=== PATIENT | male | born 1955 | race Hispanic/Latino ===

== ENCOUNTER 2020-12-01 13:03 | Inpatient (IN) | payer OTHER ==
[2020-12-01] MEDS ORDERED: Acetaminophen 325 MG TAB PO PRN (14:07)
[2020-12-01] MEDS ORDERED: Senokot S 8.6-50 MG TAB PO PRN (14:07)
[2020-12-01] MEDS ORDERED: Ondansetron PF 4 MG/2 ML Vial IVP PRN (14:07)
[2020-12-01] MEDS ORDERED: Guaifenesin DM 100-10/5 ML UDCUP PO PRN (14:07)
[2020-12-01 14:27] VITALS: BMI 27.4
[2020-12-01] MEDS: Azithromycin 500 MG in Sodium Chloride 0.9% 250 ML 250 ML IVPB SCH (14:33)
[2020-12-01] MEDS: cefTRIAXone\\ROCEPHIN 1 GM in Sodium Chloride 0.9% 100 ML IVPB SCH (14:33)
[2020-12-01] MEDS: Benzonatate 100 MG CAP PO SCH ×2 (16:29→19:55)
[2020-12-01] MEDS: Famotidine/PF 20 mg/2ml Vial SLOW IVP SCH (19:54)
[2020-12-01] MEDS ORDERED: Famotidine 20 MG TAB PO SCH (21:00)
[2020-12-02 03:34] LABS: Mean Corpuscular HGB CONC 31.8 g/dL (32.0-36.0); Mean Corpuscular Hemoglobin 25.9 pg (27.0-33.0); Mean Corpuscular Volume 81.5 fl (81.2-95.1); Mean Platelet Volume 9.7 fl (7.4-10.4); Platelet Count 145 10x3/uL (150-450); RBC Distribution Width 16.6 % (11.5-14.5); Red Blood Cell (RBC) Count 5.02 10x6/uL (4.32-5.72); White Blood Cell (WBC) Count 5.7 10x3/uL (3.5-10.5)
[2020-12-02 03:48] LABS: Magnesium 2.2 mg/dL (1.6-2.6)
[2020-12-02 03:51] LABS: ALT (SGPT) 21 U/L (8-55); AST (SGOT) 27 U/L (5-34); Albumin 3.2 g/dL (3.4-4.8); Alkaline Phosphatase 73 U/L (40-110); Anion Gap 14 mmol/L (10-20); BUN (Urea Nitrogen) 23 mg/dL (8.4-25.7); Bilirubin, Total 1.3 mg/dL (0.2-1.2); Calc. Creatinine Clearance 109 mL/min (70-130); Calcium 8.5 mg/dL (7.8-10.44); Carbon Dioxide 24 mmol/L (23-31); Chloride 107 mmol/L (98-107); Globulin 1.7 g/dL (2.4-3.5); Glucose 99 mg/dL (80-115); Potassium 4.4 mmol/L (3.5-5.1); Protein, Total 4.9 g/dL (5.8-8.1); Sodium 141 mmol/L (136-145)
[2020-12-02 04:23] LABS: Band 27 % (5-11); Lymphocytes 5 % (21-51); Monocytes 3 % (0-10); Myelocyte 2 % (0-0); Reactive Lymphocytes 2 % (0-10)
[2020-12-02 04:27] LABS: Anisocytosis SLIGHT = 6-15 cells (100X) (0-5/hpf); Metamyelocyte 4 % (0-0); Microcytosis SLIGHT = 6-15 cells (100X) (0-5/hpf); Neutrophil 57 % (42-75); Ovalocytes SLIGHT = 2-5 cells (100X) (0-1/hpf)
[2020-12-02 04:28] LABS: Platelet Morphology Comment Appears Adequate; Toxic Granulation SLIGHT
[2020-12-02 04:29] LABS: MDiff Complete? YES; Small Platelets MODERATE
[2020-12-02] MEDS: Aspirin 81 mg Enteric Coated Tablet PO SCH (08:57)
[2020-12-02] MEDS: Benzonatate 100 MG CAP PO SCH ×3 (08:57→20:34)
[2020-12-02] MEDS: Famotidine/PF 20 mg/2ml Vial SLOW IVP SCH ×2 (08:57→20:34)
[2020-12-02] MEDS: Enoxaparin Sodium 40 MG/0.4 ML SYRINGE SC SCH (08:57)
[2020-12-02] MEDS: Dexamethasone 4 MG TAB PO SCH (08:58)
[2020-12-02] MEDS: Azithromycin 500 MG in Sodium Chloride 0.9% 250 ML 250 ML IVPB SCH (15:26)
[2020-12-02] MEDS: cefTRIAXone\\ROCEPHIN 1 GM in Sodium Chloride 0.9% 100 ML IVPB SCH (15:27)
[2020-12-02] MEDS ORDERED: Piperacillin/Tazobactam 3.375 GM in Sodium Chloride 0.9% 100 ML IVPB SCH (18:45)
[2020-12-03] MEDS: Piperacillin/Tazobactam 3.375 GM in Sodium Chloride 0.9% 100 ML IVPB SCH ×3 (00:45→15:09)
[2020-12-03] MEDS: Benzonatate 100 MG CAP PO SCH ×3 (08:10→20:16)
[2020-12-03] MEDS: Aspirin 81 mg Enteric Coated Tablet PO SCH (08:10)
[2020-12-03] MEDS: Enoxaparin Sodium 40 MG/0.4 ML SYRINGE SC SCH (08:10)
[2020-12-03] MEDS: Dexamethasone 4 MG TAB PO SCH (08:10)
[2020-12-03] MEDS: Famotidine/PF 20 mg/2ml Vial SLOW IVP SCH (08:10)
[2020-12-03] MEDS: Pantoprazole 40 MG VIAL IVP SCH (20:17)
[2020-12-04] MEDS: Piperacillin/Tazobactam 3.375 GM in Sodium Chloride 0.9% 100 ML IVPB SCH ×2 (00:03→06:22)
[2020-12-04] MEDS: Pantoprazole 40 MG VIAL IVP SCH ×2 (07:51→21:16)
[2020-12-04 07:56] LABS: ALT (SGPT) 12 U/L (8-55); AST (SGOT) 23 U/L (5-34); Albumin 3.3 g/dL (3.4-4.8); Alkaline Phosphatase 68 U/L (40-110); Anion Gap 13 mmol/L (10-20); BUN (Urea Nitrogen) 24 mg/dL (8.4-25.7); Bilirubin, Total 1.7 mg/dL (0.2-1.2); Calc. Creatinine Clearance 109 mL/min (70-130); Calcium 8.7 mg/dL (7.8-10.44); Carbon Dioxide 26 mmol/L (23-31); Chloride 106 mmol/L (98-107); Globulin 2.2 g/dL (2.4-3.5); Glucose 87 mg/dL (80-115); Potassium 4.1 mmol/L (3.5-5.1); Protein, Total 5.5 g/dL (5.8-8.1); Sodium 141 mmol/L (136-145)
[2020-12-04] MEDS: Enoxaparin Sodium 40 MG/0.4 ML SYRINGE SC SCH (09:10)
[2020-12-04] MEDS: Benzonatate 100 MG CAP PO SCH ×3 (09:10→21:16)
[2020-12-04] MEDS: Aspirin 81 mg Enteric Coated Tablet PO SCH (09:11)
[2020-12-04] MEDS: Dexamethasone 4 MG TAB PO SCH (09:11)
[2020-12-04] MEDS ORDERED: Vancomycin 1.5 GRAM/300 ML BAG 1.5 GM in Premix Bag 1 BAG IVPB SCH (14:30)
[2020-12-04] MEDS: Cefepime 2 GM in Sodium Chloride 0.9% 100 ML IVPB SCH (14:42)
[2020-12-04] MEDS: guaiFENesin/Codeine Phosphate 100 mg/10 mg 5 ml UD Cup PO PRN ×2 (14:44→21:55)
[2020-12-04 18:23] LABS: Legionella Urinary Ag Negative (Negative); Strep pneumo Urine Ag NEGATIVE (NEGATIVE)
[2020-12-04] MEDS ORDERED: VANCOMYCIN 1.25 GM/250 ML BAG 1.25 GM in Premix Bag 1 BAG IVPB SCH (21:00)
[2020-12-04] MEDS: Dexamethasone 20 MG/5 ML VIAL SLOW IVP SCH (21:16)
[2020-12-05] MEDS: VANCOMYCIN 1.25 GM/250 ML BAG 1.25 GM in Premix Bag 1 BAG IVPB SCH ×2 (02:53→14:05)
[2020-12-05] MEDS: Cefepime 2 GM in Sodium Chloride 0.9% 100 ML IVPB SCH ×2 (02:54→14:05)
[2020-12-05 03:29] LABS: Hemoglobin 12.9 g/dL (13.5-17.5); Mean Corpuscular HGB CONC 32.1 g/dL (32.0-36.0); Mean Corpuscular Hemoglobin 25.8 pg (27.0-33.0); Mean Corpuscular Volume 80.4 fl (81.2-95.1); Mean Platelet Volume 12.2 fl (7.4-10.4); Platelet Count 156 10x3/uL (150-450); RBC Distribution Width 16.6 % (11.5-14.5); White Blood Cell (WBC) Count 4.5 10x3/uL (3.5-10.5)
[2020-12-05 03:42] LABS: Anion Gap 14 mmol/L (10-20); BUN (Urea Nitrogen) 24 mg/dL (8.4-25.7); Calc. Creatinine Clearance 115 mL/min (70-130); Calcium 8.9 mg/dL (7.8-10.44); Carbon Dioxide 25 mmol/L (23-31); Chloride 106 mmol/L (98-107); Glucose 115 mg/dL (80-115); Potassium 4.7 mmol/L (3.5-5.1); Sodium 140 mmol/L (136-145)
[2020-12-05 03:55] LABS: MDiff Complete? YES
[2020-12-05 04:08] LABS: Band 24 % (5-11); Lymphocytes 7 % (21-51); Metamyelocyte 9 % (0-0); Monocytes 5 % (0-10); Myelocyte 3 % (0-0); Neutrophil 49 % (42-75); Reactive Lymphocytes 3 % (0-10)
[2020-12-05 04:10] LABS: Microcytosis SLIGHT = 6-15 cells (100X) (0-5/hpf)
[2020-12-05 04:11] LABS: Ovalocytes MODERATE= 6-15 cells (100X) (0-1/hpf); Platelet Morphology Comment Appears Adequate
[2020-12-05] MEDS: Pantoprazole 40 MG VIAL IVP SCH ×2 (08:57→21:01)
[2020-12-05] MEDS: Dexamethasone 20 MG/5 ML VIAL SLOW IVP SCH ×2 (08:57→21:01)
[2020-12-05] MEDS: Enoxaparin Sodium 40 MG/0.4 ML SYRINGE SC SCH (08:57)
[2020-12-05] MEDS: Benzonatate 100 MG CAP PO SCH ×3 (08:58→21:02)
[2020-12-05] MEDS: Aspirin 81 mg Enteric Coated Tablet PO SCH (08:58)
[2020-12-05 11:59] LABS: Reference Lab Name LABCORP
[2020-12-05 12:00] LABS: Ref Lab Test Ordered GALACTOMANAN ASPERGI
[2020-12-05] MEDS: guaiFENesin/Codeine Phosphate 100 mg/10 mg 5 ml UD Cup PO PRN ×2 (14:51→21:01)
[2020-12-06] MEDS: VANCOMYCIN 1.25 GM/250 ML BAG 1.25 GM in Premix Bag 1 BAG IVPB SCH (03:04)
[2020-12-06] MEDS: Cefepime 2 GM in Sodium Chloride 0.9% 100 ML IVPB SCH ×2 (03:05→14:10)
[2020-12-06] MEDS: guaiFENesin/Codeine Phosphate 100 mg/10 mg 5 ml UD Cup PO PRN ×2 (03:07→21:25)
[2020-12-06 03:12] LABS: Hemoglobin 13.2 g/dL (13.5-17.5); Mean Corpuscular HGB CONC 32.4 g/dL (32.0-36.0); Mean Corpuscular Hemoglobin 26.1 pg (27.0-33.0); Mean Corpuscular Volume 80.6 fl (81.2-95.1); Mean Platelet Volume 9.5 fl (7.4-10.4); Platelet Count 126 10x3/uL (150-450); RBC Distribution Width 16.5 % (11.5-14.5); Red Blood Cell (RBC) Count 5.06 10x6/uL (4.32-5.72); White Blood Cell (WBC) Count 5.9 10x3/uL (3.5-10.5)
[2020-12-06 03:38] LABS: Anion Gap 13 mmol/L (10-20); BUN (Urea Nitrogen) 23 mg/dL (8.4-25.7); CRP (Inflammatory) 1.97 mg/dL (= or < 0.5); Calc. Creatinine Clearance 121 mL/min (70-130); Calcium 8.6 mg/dL (7.8-10.44); Carbon Dioxide 25 mmol/L (23-31); Chloride 106 mmol/L (98-107); Glucose 121 mg/dL (80-115); Potassium 4.8 mmol/L (3.5-5.1); Sodium 139 mmol/L (136-145)
[2020-12-06 03:42] LABS: MDiff Complete? YES
[2020-12-06 03:48] LABS: Band 17 % (5-11); Lymphocytes 4 % (21-51); Metamyelocyte 5 % (0-0); Monocytes 13 % (0-10); Neutrophil 60 % (42-75); Reactive Lymphocytes 1 % (0-10)
[2020-12-06 03:50] LABS: Ovalocytes MODERATE= 6-15 cells (100X) (0-1/hpf); Platelet Morphology Comment Appears Decreased; Tear Drops SLIGHT = 2-5 cells (100X) (0-1/hpf)
[2020-12-06] MEDS: Dexamethasone 20 MG/5 ML VIAL SLOW IVP SCH (08:58)
[2020-12-06] MEDS: Enoxaparin Sodium 40 MG/0.4 ML SYRINGE SC SCH (08:58)
[2020-12-06] MEDS: Aspirin 81 mg Enteric Coated Tablet PO SCH (08:58)
[2020-12-06] MEDS: Benzonatate 100 MG CAP PO SCH ×3 (08:58→21:26)
[2020-12-06] MEDS: Pantoprazole 40 MG VIAL IVP SCH ×2 (08:59→21:26)
[2020-12-06] MEDS: Ventolin HFA Inhaler 60 PUFF INHALER INH PRN ×2 (12:00→20:40)
[2020-12-06] MEDS ORDERED: Vancomycin 1.5 GRAM/300 ML BAG 1.5 GM in Premix Bag 1 BAG IVPB SCH (15:00)
[2020-12-06 20:36] LABS: Actual Bicarbonate (HCO3a) 25.2 mEq/L (22-28); Base Excess (BEa) 1.4 mEq/L (-2.0 to +3.0); CO2 Tension 37.5 mmHg (35.0-45.0); Carboxyhemoglobin (COHb) 0.5 gm% (0.0-3.0); Hemoglobin (Hb) 14.4 g/dL (14.0-18.0); O2 Tension (PaO2), arterial 70.9 mmHg (> 80.0); Potassium - ABG Lab 4.5 mmol/L (3.70-5.30); Puncture Site RRA; pH, Arterial 7.45 (7.35-7.45)
[2020-12-06 20:38] LABS: ALV-art Gradient 595.225 mmHg (0-20)
[2020-12-06] MEDS ORDERED: Furosemide 40 MG/4 ML VIAL SLOW IVP SCH (21:00)
[2020-12-07] MEDS: Cefepime 2 GM in Sodium Chloride 0.9% 100 ML IVPB SCH ×2 (02:54→15:02)
[2020-12-07 04:03] LABS: ALV-art Gradient 617.225 mmHg (0-20); Actual Bicarbonate (HCO3a) 25.6 mEq/L (22-28); CO2 Tension 33.5 mmHg (35.0-45.0); Calcium, Ionized (arterial) 1.17 mmol/L (1.12-1.30); Carboxyhemoglobin (COHb) 0.7 gm% (0.0-3.0); Hemoglobin (Hb) 15.6 g/dL (14.0-18.0); O2 Tension (PaO2), arterial 53.9 mmHg (> 80.0); Potassium - ABG Lab 4.3 mmol/L (3.70-5.30); Puncture Site RRA
[2020-12-07 04:05] LABS: Platelet Count 154 10x3/uL (150-450)
[2020-12-07 04:06] LABS: Hemoglobin 14.8 g/dL (13.5-17.5); Mean Corpuscular Hemoglobin 25.6 pg (27.0-33.0); Mean Platelet Volume 9.6 fl (7.4-10.4); RBC Distribution Width 17.6 % (11.5-14.5); Red Blood Cell (RBC) Count 5.79 10x6/uL (4.32-5.72); White Blood Cell (WBC) Count 7.7 10x3/uL (3.5-10.5)
[2020-12-07 04:09] LABS: Anion Gap 18 mmol/L (10-20); BUN (Urea Nitrogen) 32 mg/dL (8.4-25.7); CRP (Inflammatory) 6.57 mg/dL (= or < 0.5); Calc. Creatinine Clearance 101 mL/min (70-130); Calcium 9.9 mg/dL (7.8-10.44); Carbon Dioxide 26 mmol/L (23-31); Chloride 101 mmol/L (98-107); Glucose 91 mg/dL (80-115); Potassium 4.3 mmol/L (3.5-5.1); Sodium 141 mmol/L (136-145)
[2020-12-07 04:19] LABS: MDiff Complete? YES
[2020-12-07 04:26] LABS: Band 20 % (5-11); Lymphocytes 2 % (21-51); Metamyelocyte 5 % (0-0); Monocytes 20 % (0-10); Neutrophil 46 % (42-75)
[2020-12-07] MEDS ORDERED: fentaNYL Citrate/PF 2,000 MCG in Sodium Chloride 0.9% 60 ML IV PRN (04:29)
[2020-12-07 04:30] LABS: Reflex for Review?? YES
[2020-12-07 04:31] LABS: Elliptocytes MODERATE= 6-15 cells (100X) (0-1/hpf); Toxic Granulation SLIGHT
[2020-12-07 04:32] LABS: Platelet Morphology Comment Appears Adequate; Schistocytes SLIGHT = 2-5 cells (100X) (0-1/hpf)
[2020-12-07] MEDS: fentaNYL Citrate-0.9 % NaCl/PF 100 ML IVPB SCH ×2 (05:59→23:54)
[2020-12-07 07:14] LABS: Actual Bicarbonate (HCO3a) 35.3 mEq/L (22-28); Base Excess (BEa) -1.2 mEq/L (-2.0 to +3.0); CO2 Tension 141.9 mmHg (35.0-45.0); Calcium, Ionized (arterial) 1.31 mmol/L (1.12-1.30); Carboxyhemoglobin (COHb) 0.4 gm% (0.0-3.0); Hemoglobin (Hb) 16.6 g/dL (14.0-18.0); O2 Tension (PaO2), arterial 83.9 mmHg (> 80.0); Puncture Site LRA; pH, Arterial 7.01 (7.35-7.45)
[2020-12-07 07:18] LABS: ALV-art Gradient 309.125 mmHg (0-20)
[2020-12-07] MEDS: methylPREDNISolone Sod Succ/PF 125 MG/2 ML VIAL IVP SCH ×3 (08:11→21:57)
[2020-12-07] MEDS ORDERED: Heparin 10,000 UNITS/ 10 ML VIAL SLOW IVP SCH (08:30)
[2020-12-07 08:36] LABS: Actual Bicarbonate (HCO3a) 25.5 mEq/L (22-28); Base Excess (BEa) -4.8 mEq/L (-2.0 to +3.0); CO2 Tension 70.5 mmHg (35.0-45.0); Calcium, Ionized (arterial) 1.25 mmol/L (1.12-1.30); Carboxyhemoglobin (COHb) 0.4 gm% (0.0-3.0); Hemoglobin (Hb) 16.7 g/dL (14.0-18.0); O2 Tension (PaO2), arterial 310.1 mmHg (> 80.0); Potassium - ABG Lab 5.1 mmol/L (3.70-5.30); Puncture Site RRA; pH, Arterial 7.18 (7.35-7.45)
[2020-12-07 08:37] LABS: ALV-art Gradient 314.775 mmHg (0-20)
[2020-12-07] MEDS: Pantoprazole 40 MG VIAL IVP SCH ×2 (08:43→21:57)
[2020-12-07] MEDS: Aspirin 81 mg Enteric Coated Tablet PO SCH (08:43)
[2020-12-07] MEDS: Vecuronium Bromide 50 MG in Sodium Chloride 0.9% 250 ML 250 ML IV SCH (08:43)
[2020-12-07 08:47] LABS: Hemoglobin 16.2 g/dL (13.5-17.5); Platelet Count 288 10x3/uL (150-450)
[2020-12-07] MEDS: Heparin 25,000 units/D5W 500 ML IVPB SCH (09:00)
[2020-12-07] MEDS ORDERED: Dexamethasone 20 MG/5 ML VIAL SLOW IVP SCH (09:00)
[2020-12-07] MEDS: Norepinephrine 8 MG/0.9% NS 250 ML IVPB SCH ×3 (10:00→23:53)
[2020-12-07] MEDS: Propofol 1,000 MG/100 ML VIAL IV PRN ×2 (11:04→18:38)
[2020-12-07] MEDS ORDERED: Phenylephrine 40 MG/NS 250 ML 250 ML ONE (11:38)
[2020-12-07] MEDS ORDERED: Phenylephrine 40 MG in Sodium Chloride 0.9% 250 ML 250 ML IVPB SCH (11:45)
[2020-12-07] MEDS: Furosemide 20 MG/2 ML VIAL SLOW IVP SCH (12:56)
[2020-12-07] MEDS: Benzonatate 100 MG CAP PO SCH ×3 (12:57→21:49)
[2020-12-07] MEDS ORDERED: Sodium Chloride 0.9% 250 ML 250 ML ONE (15:28)
[2020-12-07] MEDS: Phenylephrine 40 MG/NS 250 ML 40 MG in Premix Bag 1 BAG IVPB SCH (15:30)
[2020-12-07 15:44] LABS: PTT 97.6 sec (22.0-33.0)
[2020-12-07] MEDS ORDERED: Dextrose 5% in Water 1,000 ML IV PRN (17:15)
[2020-12-07] MEDS ORDERED: Dextrose 50% Abboject 50 ML SYRINGE SLOW IVP PRN (17:15)
[2020-12-07] MEDS: HumaLOG 300 UNITS/3 ML VIAL SC PRN ×2 (18:17→21:57)
[2020-12-07] MEDS ORDERED: EPINEPHrine 1 MG/10 ML Abboject SYRINGE ONE (19:40)
[2020-12-07] MEDS ORDERED: Sodium Bicarb 50 MEQ/50 ML Abboject 8.4% SYRINGE ONE (19:40)
[2020-12-07] MEDS: Heparin 10,000 UNITS/ 10 ML VIAL SLOW IVP SCH (23:55)
[2020-12-08] MEDS: Phenylephrine 40 MG/NS 250 ML 40 MG in Premix Bag 1 BAG IVPB SCH ×5 (00:06→23:20)
[2020-12-08] MEDS: Propofol 1,000 MG/100 ML VIAL IV PRN ×4 (00:15→23:53)
[2020-12-08] MEDS ORDERED: Sodium Bicarb 50 MEQ/50 ML VIAL IVP SCH (04:00)
[2020-12-08 04:01] LABS: ALV-art Gradient 279.175 mmHg (0-20); Actual Bicarbonate (HCO3a) 17.7 mEq/L (22-28); Base Excess (BEa) -12.2 mEq/L (-2.0 to +3.0); CO2 Tension 55.7 mmHg (35.0-45.0); Calcium, Ionized (arterial) 0.79 mmol/L (1.12-1.30); Carboxyhemoglobin (COHb) 0.5 gm% (0.0-3.0); Potassium - ABG Lab 6.4 mmol/L (3.70-5.30); Puncture Site Arterial Line; pH, Arterial 7.12 (7.35-7.45)
[2020-12-08 04:05] LABS: Platelet Count 113 10x3/uL (150-450)
[2020-12-08] MEDS: Heparin 25,000 units/D5W 500 ML IVPB SCH ×2 (04:09→22:30)
[2020-12-08] MEDS ORDERED: Insulin Regular 300 UNITS/3 ML VIAL IVP SCH (04:15)
[2020-12-08] MEDS ORDERED: Sodium Chloride 0.9% 100 ML ONE (04:25)
[2020-12-08 04:28] LABS: #Basophils 0.1 10x3/uL (0.0-0.2); #Monocytes 0.3 10x3/uL (0.0-1.1); #Neutrophils 9.3 10x3/uL (1.5-8.4); %Basophils 0.6 % (0.0-2.0); %Monocytes 2.5 % (0.0-10.0); Hemoglobin 14.9 g/dL (13.5-17.5); Mean Corpuscular Hemoglobin 25.5 pg (27.0-33.0); Mean Corpuscular Volume 84.8 fl (81.2-95.1); RBC Distribution Width 17.2 % (11.5-14.5); Red Blood Cell (RBC) Count 5.85 10x6/uL (4.32-5.72); White Blood Cell (WBC) Count 13.9 10x3/uL (3.5-10.5)
[2020-12-08 04:30] LABS: CKMB 25.8 ng/mL (0-6.6)
[2020-12-08 04:31] LABS: MDiff Complete? YES; Manual Diff?? YES
[2020-12-08 04:39] LABS: Anion Gap 24 mmol/L (10-20); BUN (Urea Nitrogen) 58 mg/dL (8.4-25.7); Calc. Creatinine Clearance 22 mL/min (70-130); Calcium 6.8 mg/dL (7.8-10.44); Carbon Dioxide 16 mmol/L (23-31); Chloride 101 mmol/L (98-107); Glucose 274 mg/dL (80-115); Magnesium 2.9 mg/dL (1.6-2.6); Sodium 135 mmol/L (136-145)
[2020-12-08] MEDS: Cefepime 2 GM in Sodium Chloride 0.9% 100 ML IVPB SCH ×2 (04:40→14:51)
[2020-12-08 04:44] LABS: Band 26 % (5-11); Lymphocytes 10 % (21-51); Metamyelocyte 5 % (0-0); Monocytes 23 % (0-10); Neutrophil 29 % (42-75); Nucleated RBC 4 % (0)
[2020-12-08 04:49] LABS: Anisocytosis MODERATE=16-30 cells (100X) (0-5/hpf); Elliptocytes MODERATE= 6-15 cells (100X) (0-1/hpf); Platelet Morphology Comment Appears Decreased; Tear Drops SLIGHT = 2-5 cells (100X) (0-1/hpf)
[2020-12-08] MEDS: INSULIN REGULAR IN 0.9 % NACL 100 UNIT in Premix Bag 1 BAG IVPB SCH ×2 (05:23→10:30)
[2020-12-08] MEDS: Heparin 10,000 UNITS/ 10 ML VIAL SLOW IVP SCH (06:04)
[2020-12-08] MEDS: methylPREDNISolone Sod Succ/PF 125 MG/2 ML VIAL IVP SCH ×3 (06:07→21:27)
[2020-12-08 07:04] LABS: Actual Bicarbonate (HCO3a) 22.9 mEq/L (22-28); Base Excess (BEa) -4.7 mEq/L (-2.0 to +3.0); CO2 Tension 51.7 mmHg (35.0-45.0); Carboxyhemoglobin (COHb) 0.6 gm% (0.0-3.0); Hemoglobin (Hb) 15.2 g/dL (14.0-18.0); O2 Tension (PaO2), arterial 69.6 mmHg (> 80.0); Potassium - ABG Lab 5.1 mmol/L (3.70-5.30); Puncture Site Arterial Line; pH, Arterial 7.26 (7.35-7.45)
[2020-12-08 07:06] LABS: ALV-art Gradient 293.575 mmHg (0-20)
[2020-12-08] MEDS ORDERED: Calcium Gluc 4.6 MEQ/10 ML (100 MG/ML) SLOW IVP SCH (08:00)
[2020-12-08] MEDS: Benzonatate 100 MG CAP PO SCH ×3 (08:25→23:49)
[2020-12-08] MEDS: Aspirin 81 mg Enteric Coated Tablet PO SCH (08:27)
[2020-12-08] MEDS: Pantoprazole 40 MG VIAL IVP SCH ×2 (08:27→21:27)
[2020-12-08] MEDS: Furosemide 20 MG/2 ML VIAL SLOW IVP SCH (08:27)
[2020-12-08] MEDS: Norepinephrine 8 MG/0.9% NS 250 ML IVPB SCH ×3 (08:39→20:57)
[2020-12-08] MEDS ORDERED: EPINEPHrine 1 MG/10 ML Abboject SYRINGE ONE (09:00)
[2020-12-08 10:51] LABS: Potassium 5.3 mmol/L (3.5-5.1)
[2020-12-08] MEDS ORDERED: Heparin 10,000 UNITS/ 10 ML VIAL SLOW IVP SCH (11:00)
[2020-12-08] MEDS ORDERED: Propofol 1,000 MG/100 ML VIAL IV ONE (14:40)
[2020-12-08 16:21] LABS: PTT 126.3 sec (22.0-33.0)
[2020-12-08] MEDS: fentaNYL Citrate-0.9 % NaCl/PF 100 ML IVPB SCH (21:27)
[2020-12-09 01:30] LABS: PTT Greater than 139.0 sec (22.0-33.0)
[2020-12-09] MEDS: Cefepime 2 GM in Sodium Chloride 0.9% 100 ML IVPB SCH (02:54)
[2020-12-09] MEDS: Propofol 1,000 MG/100 ML VIAL IV PRN (02:55)
[2020-12-09] MEDS ORDERED: Acetaminophen 650 MG Suppository PR PRN (04:45)
[2020-12-09] MEDS: Phenylephrine 40 MG/NS 250 ML 40 MG in Premix Bag 1 BAG IVPB SCH ×2 (04:54→08:59)
[2020-12-09 04:55] VITALS: TEMP 100.4
[2020-12-09 04:58] LABS: PTT 122.1 sec (22.0-33.0)
[2020-12-09] MEDS: methylPREDNISolone Sod Succ/PF 125 MG/2 ML VIAL IVP SCH (05:24)
[2020-12-09] MEDS: Vecuronium Bromide 50 MG in Sodium Chloride 0.9% 250 ML 250 ML IV SCH (05:49)
[2020-12-09 07:21] LABS: Actual Bicarbonate (HCO3a) 18.6 mEq/L (22-28); Base Excess (BEa) -8.2 mEq/L (-2.0 to +3.0); CO2 Tension 42.8 mmHg (35.0-45.0); Calcium, Ionized (arterial) 0.83 mmol/L (1.12-1.30); Hemoglobin (Hb) 14.2 g/dL (14.0-18.0); O2 Tension (PaO2), arterial 71.4 mmHg (> 80.0); Potassium - ABG Lab 5.3 mmol/L (3.70-5.30); Puncture Site RRA; Temperature 37.5 C; pH, Arterial 7.26 (7.35-7.45)
[2020-12-09 07:24] VITALS: BP 94/56
[2020-12-09] MEDS: Norepinephrine 8 MG/0.9% NS 250 ML IVPB SCH ×2 (07:27→10:49)
[2020-12-09] MEDS: Aspirin 81 mg Enteric Coated Tablet PO SCH (07:45)
[2020-12-09] MEDS: Benzonatate 100 MG CAP PO SCH (07:45)
[2020-12-09] MEDS: Furosemide 20 MG/2 ML VIAL SLOW IVP SCH (07:45)
[2020-12-09] MEDS: Pantoprazole 40 MG VIAL IVP SCH (07:51)
[2020-12-09 08:16] LABS: Hemoglobin 13.4 g/dL (13.5-17.5)
[2020-12-09 08:20] LABS: Platelet Count 66 10x3/uL (150-450)
[2020-12-09 09:59] LABS: Anion Gap 21 mmol/L (10-20); BUN (Urea Nitrogen) 90 mg/dL (8.4-25.7); Calc. Creatinine Clearance 14 mL/min (70-130); Carbon Dioxide 18 mmol/L (23-31); Chloride 99 mmol/L (98-107); Glucose 187 mg/dL (80-115); Potassium 5.6 mmol/L (3.5-5.1); Sodium 132 mmol/L (136-145)
[2020-12-09] MEDS ORDERED: Amiodarone In Dextrose 200 ML IVPB SCH (10:45)
[2020-12-09 12:09] LABS: PTT Greater than 139.0 sec (22.0-33.0)
[2020-12-09 23:36] LABS: Mycoplasma pneumoniae IgG AB Less than 100 U/mL (0-99); Mycoplasma pneumoniae IgM AB Less than 770 U/mL (0-769)
== END 2020-12-09 14:52 | disposition expired | DRG 208 ==
LOC: CSHIMCU 13:03
PROVIDERS: ADMIT Internal Medicine; ATTEND Internal Medicine
PROC: 5A1945Z Respiratory Ventilation, 24-96 Consecutive Hours (ICD-10-PCS; principal; 2020-12-07)
PROC: 0BH18EZ Insertion of Endotracheal Airway into Trachea, Via Natural or Artificial Opening Endoscopic (ICD-10-PCS; 2020-12-07)
PROC: 3E033XZ Introduction of Vasopressor into Peripheral Vein, Percutaneous Approach (ICD-10-PCS; 2020-12-07)
PROC: 5A12012 Performance of Cardiac Output, Single, Manual (ICD-10-PCS; 2020-12-09)
DX: J84.10 Pulmonary fibrosis, unspecified (principal); J96.21 Acute and chronic respiratory failure with hypoxia; J69.0 Pneumonitis due to inhalation of food and vomit; Z66 Do not resuscitate; U07.1 COVID-19; G93.41 Metabolic encephalopathy; J93.9 Pneumothorax, unspecified; R57.9 Shock, unspecified; N17.9 Acute kidney failure, unspecified; B37.0 Candidal stomatitis; I50.30 Unspecified diastolic (congestive) heart failure; E87.2 Acidosis; J47.9 Bronchiectasis, uncomplicated; K21.9 Gastro-esophageal reflux disease without esophagitis; I46.2 Cardiac arrest due to underlying cardiac condition; Z85.72 Personal history of non-Hodgkin lymphomas
CPT/HCPCS: 36415; 36416; 36600; 71045; 71260; 74177; 74230; 80048; 80053; 80202; 82103; 82553; 82728; 82805; 83735; 83880; 84145; 84443; 84484; 85014; 85018; 85025; 85049; 85060; 85379; 85730; 86140; 87070; 87116; 87205; 87206; 87449; 87556; 87899; 93005; 93010; 93306; 94002; 94003; 94640; 94664; 94760; C9113; J0171; J0282; J0456; J0610; J0692; J0696; J1100; J1644; J1650; J1815; J1940; J2543; J2704; J2930; J3370; J3490; J7050; J7070; J7620; J8540; S0028